=== PATIENT | female | born 1980 | race Caucasian/White ===

== ENCOUNTER 2018-08-22 03:04 | Inpatient (IN) | payer OTHER ==
[~2018-08-22] VITALS: Ht 162.6 cm; Wt 54.3 kg
[2018-08-22 04:21] VITALS: Ht 162.6 cm; Wt 54.3 kg
[2018-08-22] MEDS ORDERED: NACL 0.9% 3 ML SYG IV SCH (05:00)
[2018-08-22] MEDS ORDERED: ONDANSETRON 4 MG INJ IV PRN (05:00)
[2018-08-22] MEDS ORDERED: HYDROCODONE/APAP (5/325) TAB PO PRN (05:00)
[2018-08-22] MEDS ORDERED: BISACODYL (EC) 5 MG TAB PO PRN (05:00)
[2018-08-22] MEDS ORDERED: ACETAMINOPHEN 325 MG TAB PO PRN (05:00)
--- NOTE | 2018-08-22 05:02 | HP ---
Date/Time of Note Date/Time of Note DATE: 08/22/18 TIME: 04:57 Assessment/Plan VTE Prophylaxis SCD applied (from Nsg): Yes Pharmacological prophylaxis: NA/contraindicated Pharm contraindication: low risk/ambulating Lines/Catheters IV Catheter Type (from Nrsg): Saline Lock Assessment/Plan Hospital Course This is a 38-year-old female being admitted to the [facility] for: #1 intractable back pain: Secondary likely to lumbar radiculopathy/sciatica. Patient did have a CT scan at the transferring facility showed: Degenerative enthesopathy at L5-S1 including approximately 3 mm retrolisthesis of L5 vertebral body and S1. There is appearance of a large posterior central disc protrusion at L5-S1. At the current time we will obtain an MRI of the lumbar spine and the pelvis to further assess spine. Provide the patient with Toradol 30 mg IV every 6 hours as well as morphine 2 mg IV every 4 hours as this provided her relief at the transferring hospital. She reports that ibuprofen and baclofen and Arlington at home did not give her any relief. Consider muscle relaxant such as cyclobenzaprine given her left paravertebral spinal tenderness palpation, however I will be cautious with administrating this given the fact that she is currently on morphine as well. Neurosurgical consultation depending on MRI results. #2 urinary tract infection: Patient's urinalysis was positive for nitrites and leukoesterase, obtain urine culture results from the transfer facility if possible, nonetheless I will also order urinalysis and urine culture here as well. Ceftriaxone 1 g every 24 hours. #3 DVT GI prophylaxis: SCDs, no GI prophylaxis indicated Further treatment strategy will be implemented as per the clinical course. HPI/ROS Admit Date/Time Admit Date/Time Aug 22, 2018 at 03:45 Hx of Present Illness Chief complaint: Low back pain radiating to the left leg This is a 38-year-old female who was seen at [facility] with complaints of back pain that radiated to the left leg. Patient was subsequently transferred to [facility] secondary to insurance purposes. Patient apparently has a history of sciatica and had a flareup of her pain on 08/15. She was seen at [place] emergency department approximately 3 days ago and had similar complaints and was given Arlington and baclofen but this did not provide relief for her. She also took ibuprofen at home with no relief so she presented to [facility]. At [facility] she reported 10 out of 10 pain. She reported that she had been diagnosed with sciatica in April 2018 and she has had acupuncture that relieved her pain. She denies any trauma. Of note she was also diagnosed with a urinary tract infection at [facility] and was given a prescription for Bactrim but she has not been taking this. She reports that the pain is sharp and knifelike. Her pain is worse with movement and is relieved by lying down on her right side. She denies any urinary incontinence or bowel or bladder dysfunction. She denies any perineal numbness. Vitals at the transfer facility: Temperature 36.8 heart rate 66 BP 105/54 respirations 18 SPO2 98% on room air Pertinent laboratory findings: White blood cell 6.2/hemoglobin 12.3/hematocrit 35.7/platelets 299 BMP sodium 137 potassium 5.0 chloride 104 CO2 27 BUN 12 creatinine 0.75 glucose 107 urine negative. Urinalysis positive for leukoesterase and nitrites CT scan stone protocol: No renal stone or ureteral stone. Degenerative enthesopathy at L5-S1 including approximately 3 mm retrolisthesis of L5 vertebral body and S1. There is appearance of a large posterior central disc protrusion at L5-S1. X-ray of the lumbar spine: No evidence of compression retrograde alert retrolisthesis at of L5-S1. Reversal of the normal lordosis. ROS Const: As per HPI Eyes : No pain discharge or redness or change in visual acuity ENT: No pain, sore throat, congestion, congestion, dysphagia or discharge Respiratory: No shortness of breath, cough, sputum, wheezing, or pleuritic pain Cardiovascular: No chest pain, palpitation, PND, or edema GI : no change in appetite, abdominal pain, nausea, vomiting, diarrhea, constipation, or change in the color his stool Genitourinary: As per HPI Musculoskeletal: As per HPI Skin: No rash, bruising or hives Neuro: No headache, dizziness, syncope, seizure, focal weakness Endocrine: No polyuria, polydipsia, temperature intolerance Psych: No hallucination, depression, anxiety or suicidal ideation PMH/Family/Social Past Medical History Sciatica Medications Current Medications IV Flush (NS 3 ml) 3 ml PER PROTOCOL IV ; Start 08/22/18 at 05:00 Ondansetron HCl (Zofran Inj) 4 mg Q6H PRN IV NAUSEA AND/OR VOMITING; Start 08/22/18 at 05:00 Acetaminophen (Tylenol Tab) 650 mg Q6H PRN PO PAIN LEVEL 1-3 OR FEVER; Start 08/22/18 at 05:00 Acetaminophen/ Hydrocodone Bitart (Arlington (5/325)) 1 tab Q6H PRN PO MODERATE PAIN LEVEL 4-6; Start 08/22/18 at 05:00 Morphine Sulfate (morphine SULFATE (PF)) 2 mg Q4H PRN IV SEVERE PAIN LEVEL 7- 10; Start 08/22/18 at 05:00 Docusate Sodium (Colace) 100 mg Q12H PRN PO CONSTIPATION; Start 08/22/18 at 05:00 Bisacodyl (Dulcolax) 5 mg DAILY PRN PO CONSTIPATION; Start 08/22/18 at 05:00 Coded Allergies: No Known Allergy (Unverified , 08/22/18) Past Surgical History Bilateral breast implants Family History Significant Family History: no pertinent family hx Social History Alcohol Use: none Smoking Status: Never smoker Drug Use: none Exam/Review of Systems Exam Exam General: Patient is a pleasant female currently lying in bed in mild distress from pain HEENT: Atraumatic, normocephalic. The pupils are equal, round and reactive. Extraocular motor are intact Neck: Supple with full range of motion. No rigidity or meningismus Chest: Nontender Lungs: Clear to auscultation bilaterally no crackles rales or wheezing Heart: Normal S1-S2, Regular rhythm and rate. Abdomen: Soft , nontender, nondistended , bowel sounds are present. No guarding no rebound tenderness , No masses or organomegaly. No costovertebral temporal angle mass Extremities: Normal to inspection, no edema no cyanosis Musculoskeletal: Tenderness of the left paraspinal muscles at the level of the lumbar spine, tenderness palpation of the over the left buttocks, positive straight leg test of the left leg Neurologic: Normal mental status, speech normal, cranial nerves II through XII are intact, motor and sensory are intact, MARIAELENA CARVALHO Aug 22, 2018 05:02
[2018-08-22 05:12] VITALS: BP 99/53; PULSE 60; RESP 18
[2018-08-22] MEDS: morphine SULFATE/PF (2 MG/2 ML) SYG IV PRN ×3 (05:49→21:31)
[2018-08-22] MEDS: KETOROLAC 30 MG INJ IV PRN (05:50)
[2018-08-22] MEDS: CEFTRIAXONE 1 GM/50 ML (PMX) 50 ML IVPB SCH (05:50)
--- NOTE | 2018-08-22 06:23 | NUR ---
ADMISSION NOTES: Received a 38 y/o female form [facility] with chief complain of back pain radiating to left lower leg started last Monday. Ushered to assigned room. Vital signs was taken and recorded. Instructed on the usage of call,light and bed button. Admission assessment and photos was taken per protocol. Admitting doctor, Dr. Herring was informed of the admission and orders was noted and carried out. Started on IV antibiotic with no adverse reaction was noted. On Regular diet.All needs met and attended. will continue to monitor.
[2018-08-22 07:47] VITALS: BP 80/43; PULSE 78; RESP 14
[2018-08-22] MEDS: DOCUSATE SODIUM 100 MG CAP PO PRN (08:15)
--- NOTE | 2018-08-22 11:40 | NUR ---
PT order received, spoke to Dr Hernandez regarding order requesting patient to be seen today. Per chart review, previous CT indicates: Degenerative enthesopathy at L5-S1 including approximately 3 mm retrolisthesis of L5 vertebral body and S1, large posterior central disc protrusion at L5-S1. MRI of lumbar spine and pelvis have been ordered with possible neurosurgical consult based on imaging results. Spoke to patient, reports pain started with pain "with coughing" insidious onset last monday. Pain began to radiate on but patient continued to go [employer]. Severe pain monday in which patient went to [facility]. Patient reports pain is controlled in flexion posture but with any extension, patient reports severe pain with radiating symptoms. Currently BLE strength appear grossly intact limited by hesitation of movement and pain. Patient receptive to PT instruction, but due to patient reported severity of symptoms and concerns regarding integrity of spinal stability, will hold further PT evaluation pending results of lumbar and pelvic MRI. RN and patient aware and agreeable.
[2018-08-22] MEDS: BACLOFEN 10 MG TAB PO SCH ×3 (11:50→20:33)
--- NOTE | 2018-08-22 13:15 | PN ---
Date/Time of Note Date/Time of Note DATE: 08/22/18 TIME: 13:09 Assessment/Plan VTE Prophylaxis Risk score (from Ns)>0 risk: 2 SCD applied (from Ns): Yes Pharmacological prophylaxis: NA/contraindicated Pharm contraindication: low risk/ambulating Lines/Catheters IV Catheter Type (from Nrsg): Saline Lock Assessment/Plan Hospital Course 38F no major PMH presents with severe back pain likely from herniated disc #intractable back pain: - Secondary likely to lumbar radiculopathy/sciatica and herniated disc. - Patient did have a CT scan at the transferring facility showed: Degenerative enthesopathy at L5-S1 including approximately 3 mm retrolisthesis of L5 vertebral body and S1. There is appearance of a large posterior central disc protrusion at L5-S1. - At the current time we will obtain an MRI of the lumbar spine and the pelvis to further assess spine. - Pain control with toradol IV, morphine IV, and baclofen TID standing. - PT evaluation after MRI. # urinary tract infection: - Patient's urinalysis was positive for nitrites and leukoesterase - obtain urine culture results from the transfer facility if possible - Ceftriaxone 1 g every 24 hours. #3 DVT GI prophylaxis: SCDs, no GI prophylaxis indicated Assessment/Plan Result Diagram: 08/22/18 0502 08/22/18 0502 Results 24hrs Laboratory Tests Test 08/22/18 05:02 White Blood Count 5.8 Red Blood Count 3.39 L Hemoglobin 11.0 L Hematocrit 33.7 L Mean Corpuscular Volume 99.4 Mean Corpuscular Hemoglobin 32.4 Mean Corpuscular Hemoglobin Concent 32.6 Red Cell Distribution Width 11.6 Platelet Count 285 Mean Platelet Volume 10.1 Immature Granulocytes % 0.300 Neutrophils % 86.2 H Lymphocytes % 11.8 L Monocytes % 1.4 Eosinophils % 0.0 Basophils % 0.3 Nucleated Red Blood Cells % 0.0 Immature Granulocytes # 0.020 Neutrophils # 5.0 Lymphocytes # 0.7 L Monocytes # 0.1 L Eosinophils # 0.0 Basophils # 0.0 Nucleated Red Blood Cells # 0.0 Erythrocyte Sedimentation Rate 9 Sodium Level 140 Potassium Level 4.4 Chloride Level 103 Carbon Dioxide Level 26 Anion Gap 11 Blood Urea Nitrogen 14 Creatinine 0.60 Est Glomerular Filtrat Rate mL/min > 60 Glucose Level 138 Hemoglobin A1c 5.2 Calcium Level 9.1 Total Bilirubin 0.1 L Direct Bilirubin 0.00 Indirect Bilirubin 0.1 Aspartate Amino Transf (AST/SGOT) 26 Alanine Aminotransferase (ALT/SGPT) 39 Alkaline Phosphatase 66 Total Protein 6.6 Albumin 3.9 Globulin 2.70 Albumin/Globulin Ratio 1.44 Triglycerides Level 42 Cholesterol Level 153 LDL Cholesterol, Calculated 95 HDL Cholesterol 50 Cholesterol/HDL Ratio 3.0 Thyroid Stimulating Hormone (TSH) 0.772 Subjective 24 Hr Interval Summary Free Text/Dictation Required morphine and toradol this morning around 6 am. On my exam patient is able to stand but has difficulty straightening back. Reports pain has improved somewhat since yesterday. Exam/Review of Systems Vital Signs Vitals Vital Signs Date Temp Pulse Resp B/P (MAP) Pulse Ox O2 O2 Flow FiO2 Time Delivery Rate 08/22/18 98.3 78 14 80/43 (55) 99 07:47 08/22/18 Room Air 05:12 Intake and Output 08/21/18 08/21/18 08/22/18 1515:00 23:00 07:00 IntakeIntake Total 50 ml BalanceBalance 50 ml Exam Gen: Well appearing well groomed woman in no acute distress Eyes: PERRL, no icterus HEENT: Clear oropharynx moist mucous membranes Card: Regular rate and rhythm no murmurs Pulm: Clear to auscultation bilaterally Back: Nontender midline spine. Mild tenderness L paraspinal lumbar area. L straight leg raise elicits pain at about 45 degrees. R straight leg raise to about 65 degrees elicits L sided pain. Medications Medications Current Medications IV Flush (NS 3 ml) 3 ml PER PROTOCOL IV ; Start 08/22/18 at 05:00 Ondansetron HCl (Zofran Inj) 4 mg Q6H PRN IV NAUSEA AND/OR VOMITING; Start 08/22/18 at 05:00 Acetaminophen (Tylenol Tab) 650 mg Q6H PRN PO PAIN LEVEL 1-3 OR FEVER; Start 08/22/18 at 05:00 Morphine Sulfate (morphine SULFATE (PF)) 2 mg Q4H PRN IV SEVERE PAIN LEVEL 7-10 Last administered on 08/22/18at 05:49; Admin Dose 2 MG; Start 08/22/18 at 05:00 Docusate Sodium (Colace) 100 mg Q12H PRN PO CONSTIPATION Last administered on 08/22/18at 08:15; Admin Dose 100 MG; Start 08/22/18 at 05:00 Bisacodyl (Dulcolax) 5 mg DAILY PRN PO CONSTIPATION; Start 08/22/18 at 05:00 Ceftriaxone Sodium 50 ml @ 100 mls/hr Q24H IVPB Last administered on 08/22/18at 05:50; Admin Dose 100 MLS/HR; Start 08/22/18 at 05:30 Ketorolac Tromethamine (Toradol) 30 mg Q6H PRN IV PAIN LEVEL 1-3 Last administered on 08/22/18at 05:50; Admin Dose 30 MG; Start 08/22/18 at 05:30; Stop 08/24/18 at 05:29 Baclofen (Lioresal) 10 mg TID PO Last administered on 08/22/18at 11:50; Admin Dose 10 MG; Start 08/22/18 at 10:00 LISBETH ESPAÑA MD Aug 22, 2018 13:15
[2018-08-22 15:58] VITALS: BP 93/52; PULSE 58; RESP 16
--- NOTE | 2018-08-22 18:46 | NUR ---
No acute distress during the day. Patient had episode of severe pain, medicated as ordered with relieve of pain. MRI is scheduled for 22:00, patient is aware. Patient was able to walk to the bathroom with assistance. Patient remained safe during the day, bed alarm is on at all times, caii light within reach. Will continue to monitor.
[2018-08-22 20:00] VITALS: BP 89/51; PULSE 68; RESP 18
--- NOTE | 2018-08-22 21:33 | NUR ---
c/o sharp lower back pain, radiating to left leg, 10/10. patient was medicated with morphine 2mg IVP prn. Patient was taught re: side effects.
[2018-08-23] MEDS: morphine SULFATE/PF (2 MG/2 ML) SYG IV PRN ×3 (01:37→12:45)
[2018-08-23 02:00] VITALS: BP 113/53; PULSE 63; RESP 18
[2018-08-23] MEDS: KETOROLAC 30 MG INJ IV PRN ×2 (04:42→23:08)
[2018-08-23] MEDS: CEFTRIAXONE 1 GM/50 ML (PMX) 50 ML IVPB SCH (04:42)
--- NOTE | 2018-08-23 05:06 | NUR ---
EOSS: Patient remains stable. Had an MRI of the spine last night, awaiting results. Medicated with pain medicine intermittently. No other complaints at this time. Will endorse to morning nurse for continuity of care.
[2018-08-23 08:06] VITALS: BP 85/50; PULSE 51; RESP 16
[2018-08-23] MEDS: BACLOFEN 10 MG TAB PO SCH ×3 (08:07→20:21)
[2018-08-23 08:29] VITALS: BP 94/52
--- NOTE | 2018-08-23 09:30 | NUR ---
PT evaluation Therapy day number 1 Evaluation Start Time 09:30 Evaluation Total Time 0 min Subjective Current complaint of pain Pain Scale NUMERIC Pain Intensity 8 (0-10) Patient Stated Goal for Pain Relief 0 (0-10) Pain Level Comment with onset of backpain, 0/10 at rest Pre Treatment Vital Signs Stable Yes Transfer Training Start Time 10:30 Supine to Sit Supervised Transfer Sit to Stand Ability Supervised Bed Mobility Sit to Supine Supervised Bed Transfer Ability Supervised Chair Transfer Ability Supervised Additional Mobility Comments See note, performed log roll precaution Transfer Training End Time 11:00 Total Transfer Training Time 30 min (8-127) Gait Assist Levels Stand by Assist Assistive Devices None Ambulation Distance 5 feet Additional Gait Comments See note Static Sitting Balance Good Dynamic Sitting Balance Good Standing Static Balance Fair Dynamic Standing Balance Fair Safety Judgement Good Activity Tolerance Fair Equipment Present IV pump Post Treatment Pain Intensity 0 0-10 Additional Post Treatment Comment See note Total Treament Time 30 min (8-127) Total Minutes 90 Total Units 6 PT Technical Record Comment 38 yo female presents with lumbar radiculopathy/sciatica. Patient reports insidious onset starting 08/15/18 and previously seen at [facility]. CT indicated Degenerative enthesopathy at L5-S1 including approximately 3 mm retrolisthesis of L5 vertebral body and S1. There is appearance of a large posterior central disc protrusion at L5-S1. Subsequently pt transferred to [facility] for insurance purposes. Lumbar MRI indicates large central disc protrusion at L5-S1 with moderate severe mass effect on the thecal sac. Bulging annulus with posterior annular fissure noted at L4-L5 PMH includes sciatica and breast implants Precautions: fall risk, observed spinal precautions for comfort PLOF: Pt independent with mobility, no assistive device required. Patient lives in 2nd level home, has 2 children S: Patient in bed agreeable to PT evaluation. pt cleared for activity per RN. O: PT evaluation completed, pt returned back to bed following therapy intervention with call light within reach and bed alarm activated. Spoke to RN regarding pt response to activity and PT plan of care. Patient educated at length regarding ther-ex and spinal precautions. Demonstrated piriformis and hamstring stretch. Performed log roll out of bed to minimize aggravation of symptoms. Tenderness to palpation along L paraspinals L4-S1, with hypomobility of L3-L4 to PA glides. Patient unable to tolerate straight leg raise due to aggravation of symptoms and poor tolerance to pelvic tilt ther-ex. A: Patient presents with severe limitations secondary to pain. Patient presents with significant hamstring tightness which increased pelvic rotation with upright posture. Patient reports minimal pain while maintaining neutral pelvis but due to limitations of muscle length and core stability with change in position, pt presents with has poor ability to maintain posture. Thus patient able to ambulate with minimal pain with forward flexed posture with hands supported on knees with B knee flexion. When upright, due to increased pressure, patient unable to weight bear on LLE due to pain. Overall patient demonstrates adequate strength to perform mobility, however severely debilitated due to pain. Patient could continue to benefit from skilled inpatient PT to improve safe mobility and decreasing risk for secondary limitations associated with deconditioning. P; progress as tolerated Recommendation: Patient may benefit from use of FWW to aid in mobility and use of lumbosacral corset for increased stability. Patient may benefit from outpatient physical therapy when medically cleared from
--- NOTE | 2018-08-23 12:26 | PN ---
Date/Time of Note Date/Time of Note DATE: 08/23/18 TIME: 12:24 Assessment/Plan VTE Prophylaxis Risk score (from Nsg)>0 risk: 1 SCD applied (from Nsg): Yes Pharmacological prophylaxis: NA/contraindicated Pharm contraindication: low risk/ambulating Lines/Catheters IV Catheter Type (from Nrsg): Saline Lock Assessment/Plan Hospital Course 38F no major PMH presents with severe back pain likely from herniated disc #intractable back pain: - Secondary likely to lumbar radiculopathy/sciatica and herniated disc. - Patient did have a CT scan at the transferring facility showed: Degenerative enthesopathy at L5-S1 including approximately 3 mm retrolisthesis of L5 vertebral body and S1. There is appearance of a large posterior central disc protrusion at L5-S1. - MRI confirms compression of thecal sac. Dr. Alvarez was consulted; but this doesn't appear to represent a surgical emergency. - Pain control with toradol IV, morphine IV, and baclofen TID standing. - Continue PT. # urinary tract infection: - Patient's urinalysis was positive for nitrites and leukoesterase - urine culture here growing GNRs, will f/u sensitivities. - Ceftriaxone 1 g every 24 hours. #3 DVT GI prophylaxis: SCDs, no GI prophylaxis indicated Result Diagram: 08/22/18 0502 08/22/18 0502 Results 24hrs Laboratory Tests Test 08/23/18 07:34 Lab Scanned Report REFERENCE LAB Subjective 24 Hr Interval Summary Free Text/Dictation Able to ambulate to restroom with back bent. Cannot straighten out back yet. Still requiring morphine and toradol for pain. Worked with physical therapy today. Dysuria has resolved. Exam/Review of Systems Vital Signs Vitals Vital Signs Date Temp Pulse Resp B/P (MAP) Pulse Ox O2 O2 Flow FiO2 Time Delivery Rate 08/23/18 94/52 (66) 08:29 08/23/18 98.4 51 16 96 Room Air 08:06 Intake and Output 08/22/18 08/22/18 08/23/18 1515:00 23:00 07:00 IntakeIntake Total 960 ml 420 ml 50 ml BalanceBalance 960 ml 420 ml 50 ml Exam Gen: Well appearing well groomed woman in no acute distress Eyes: PERRL, no icterus HEENT: Clear oropharynx moist mucous membranes Card: Regular rate and rhythm no murmurs Pulm: Clear to auscultation bilaterally Back: Nontender midline spine. Mild tenderness L paraspinal lumbar area. L st raight leg raise elicits pain at about 55 degrees. R straight leg raise to about 65 degrees elicits L sided pain. Medications Medications Current Medications IV Flush (NS 3 ml) 3 ml PER PROTOCOL IV ; Start 08/22/18 at 05:00 Ondansetron HCl (Zofran Inj) 4 mg Q6H PRN IV NAUSEA AND/OR VOMITING; Start 08/22/18 at 05:00 Acetaminophen (Tylenol Tab) 650 mg Q6H PRN PO PAIN LEVEL 1-3 OR FEVER; Start 08/22/18 at 05:00 Morphine Sulfate (morphine SULFATE (PF)) 2 mg Q4H PRN IV SEVERE PAIN LEVEL 7-10 Last administered on 08/23/18 07:00; Admin Dose 2 MG; Start 08/22/18 at 05:00 Docusate Sodium (Colace) 100 mg Q12H PRN PO CONSTIPATION Last administered on 08/22/18at 08:15; Admin Dose 100 MG; Start 08/22/18 at 05:00 Bisacodyl (Dulcolax) 5 mg DAILY PRN PO CONSTIPATION; Start 08/22/18 at 05:00 Ceftriaxone Sodium 50 ml @ 100 mls/hr Q24H IVPB Last administered on 08/23/18 04:42; Admin Dose 100 MLS/HR; Start 08/22/18 at 05:30 Ketorolac Tromethamine (Toradol) 30 mg Q6H PRN IV PAIN LEVEL 1-3 Last administered on 08/23/18 04:42; Admin Dose 30 MG; Start 08/22/18 at 05:30; Stop 08/24/18 at 05:29 Baclofen (Lioresal) 10 mg TID PO Last administered on 08/23/18 08:07; Admin Dose 10 MG; Start 08/22/18 at 10:00 LISBETH ESPAÑA MD Aug 23, 2018 12:26
[2018-08-23] MEDS: DOCUSATE SODIUM 100 MG CAP PO PRN (12:45)
[2018-08-23 13:19] VITALS: BP 97/57; PULSE 55; RESP 16
--- NOTE | 2018-08-23 18:45 | NUR ---
END OF SHIFT NOTES: PT STABLE, ALERT & ORIENTED X4. NO DISTRESS NOTED. MORPHINE GIVEN X1, PT VERBALIZED RELIEF OF PAIN. PT EVAL DONE. NO SURGERY REQUIRED ACCDG TO DR. ESPAÑA. PT AMBULATED WITH A WALKER. GIVEN PRUNE JUICE AND LAXATIVES PRN FOR CONSTIPATION. INSTRUCTED PT TO CALL FOR ASSISTANCE. VS WNL.HOURLY ROUNDING. CALL LIGHT WITHIN REACH.ALL NEEDS MET. NO NEW COMPLAINTS.
[2018-08-23 20:00] VITALS: BP 112/55; PULSE 63; RESP 18
[2018-08-24 02:00] VITALS: BP 109/52; PULSE 60; RESP 18
[2018-08-24] MEDS: morphine SULFATE/PF (2 MG/2 ML) SYG IV PRN ×4 (03:25→22:12)
[2018-08-24] MEDS: CEFTRIAXONE 1 GM/50 ML (PMX) 50 ML IVPB SCH (04:45)
--- NOTE | 2018-08-24 06:01 | NUR ---
EOSS: No acute changes. Due meds given. Pt medicated for pain as requested. Pt. still has not had a BM. Will continue to monitor. All needs attended to. Pt. has a steady gait but uses a walker to help her back pain. Pt. free from injury. Will endorse care to oncoming nurse
[2018-08-24 07:50] VITALS: BP 93/44; PULSE 50; RESP 16
[2018-08-24] MEDS ORDERED: CIPROFLOXACIN 500 MG TAB PO SCH (09:00)
--- NOTE | 2018-08-24 09:18 | CONS ---
DATE OF ADMISSION: 08/22/2018 DATE OF CONSULTATION: 08/23/2018 REQUESTING PHYSICIAN: Dr. Tomy Carvalho INDICATION FOR CONSULTATION: Low back pain and radiculopathy. HISTORY OF PRESENT ILLNESS: The patient is a 38-year-old female with patient without significant past medical history who reports 8 days of acute low back pain, pain radiating down her left lower extremity. The patient states that in April she had 2 days of some mild radicular pain that resolved spontaneously. She denies any significant low back pain or radicular pain prior to this. She denies any weakness. She denies any bowel or bladder issues. She denies any saddle anesthesia. The patient previously had gone to [facility] and was treated with medications and sent home. She came back a few days later and went to [facility]. Again, treated with pain medications and was diagnosed with a radiculopathy The patient has not seen her primary physician regarding this issue. She has not had any nonoperative therapy except for some acupuncture. The patient reports that her pain radiates down her left lower extremity to the bottom of her foot. She denies any right lower extremity pain. She states she predominantly has constant back pain, but when she stands and puts weight on her left lower extremity they are elicited. She developed a severe 10/10 pain. Her low back pain ranges 5/10 to 10/10. PAST MEDICAL HISTORY: Sciatica. OUTPATIENT MEDICATIONS: 1. Ibuprofen p.r.n. 2. [place]. PAST SURGICAL HISTORY: Significant for bilateral breast implants approximately 8 years ago. FAMILY HISTORY: No significant past medical history. SOCIAL HISTORY: Nonsmoker, nondrinker. REVIEW OF SYSTEMS: A 12-point review of systems was performed. Pertinent positives and negatives listed in history of present illness below. CONSTITUTIONAL: Denies fevers or chills. HEMATOLOGIC: Denies any history of easy bruising or bleeding. PSYCHIATRIC: Denies depression or anxiety. PHYSICAL EXAMINATION: VITAL SIGNS: The patient's temperature is 98.6, pulse 51, respirations 16, blood pressure 85/50, saturating 96% on room air. GENERAL: The patient is well-developed, well-nourished female lying in the hospital bed in no acute distress. HEAD AND NECK: Normocephalic, atraumatic. Neck supple. No Spurling or Lhermitte sign. MUSCULOSKELETAL: The patient has no tenderness to palpation paraspinally or midline in her cervical or thoracic spine. She reports minimal lumbosacral tenderness. There is no bruising or discoloration in this area. There is no swelling or tenderness. She has no atrophy. Her motor exam 5/5 bilaterally upper and lower extremities and the lower extremities, her iliopsoas, quadriceps, anterior tibialis, extensor hallucis longus are all 5 out 5 though slightly limited secondary to pain. She has a positive straight leg raise test at 30 degrees on the left. Sensation is intact to light touch. NEUROLOGICAL: The patient awake, alert, and oriented x3, fluent speech, follows commands appropriately. Cranial nerves were serially tested and are intact. Sensation intact to light touch. Gait not assessed secondary to condition. Deep tendon reflexes were 2+ throughout with no clonus, Babinski, or Christine sign. REVIEW OF RADIOGRAPHIC RESULTS: I reviewed the patient's MRI of the lumbar spine performed this hospital today (impression: there is a large central disk protrusion at L5-S1 with moderate to severe mass effect on the thecal sac and contact exiting nerve roots). There is also bulging annulus and posterior annular fissure noted L4-5. There is mild mass or effect on the thecal sac present at this level. This was interpretation by the radiologist. There is a central disk herniation, slightly eccentric to the left that contacts and likely compressive the S1 nerve root. However, there is no severe central canal stenosis. There is no significant stenosis at L4-5, though there is annular tear. ASSESSMENT AND PLAN: A 38-year-old female with a lumbar radiculopathy and low back pain. I discussed patient's signs, symptoms, physical examination and radiographic findings with her. The patient has a lumbar radiculopathy and possible radiculitis secondary to a disk herniation at L5-S1. She also has annular tear at L4-5 which may contribute to low back pain; however, I believe this is likely asymptomatic. Given that there would not be parsimonious of both issues as L4-5 and L5-S1 became symptomatic concurrently. The patient denies any trauma. The patient has had minimal nonoperative therapy does not have any focal neurologic deficits. I discussed the natural history of radiculopathy and herniated disk. I advised the patient to continue with nonoperative therapy and surgery reserve for intractable pain that does not resolve despite nonoperative therapy. I recommend at least 6 weeks of nonoperative therapy prior to consideration of operative intervention unless the patient's pain is truly intractable and she is unable to function. I explained that I perform only surgical management. The patient is recommended to follow up with her primary physician as an outpatient for referral to nonoperative treatment options. Again, the patient does not have any focal neurologic deficit to require any acute neurosurgical intervention. The patient can follow up with a neurosurgeon as an outpatient and I advised to talk to her PMD. The patient has multiple admissions to the ER, but has not apparently contacted her PMD and referral through a physician in her network should be established immediately. I did discuss this with the comp field case manager. The patient states she did not want surgical intervention unless it is a last resort. Again, the patient can follow up as an outpatient for referral for further treatment. Dictated By: WASHINGTON ALLEN MD, LG/MANUEL Conf#: [id number] DID#: [id number] CC: TOMY CARVALHO MD;*EndCC* MTDD
[2018-08-24] MEDS: BACLOFEN 10 MG TAB PO SCH ×3 (09:21→20:46)
[2018-08-24] MEDS: CIPROFLOXACIN 500 MG TAB PO SCH (09:21)
--- NOTE | 2018-08-24 11:16 | NUR ---
PT NOTE Therapy day number 2 Subjective Denies pain Potential for pain Pain Scale FACES Pain Intensity 5 (0-10) Patient Stated Goal for Pain Relief 0 (0-10) Pain Level Comment denies pain at rest, premedicated, c/o RLE pain with mobility/WB Pre Treatment Vital Signs Stable Yes Exercise Assessment Label Bilat Lower Extremity Exercise Type Active ROM Additional Exercise Comments hooklying atlassian administrator pelvic tilts/abdominal bracing, alternating UE GH flex Exercise Start Time 11:16 Exercise End Time 11:31 Total Exercise Time 15 min (8-127) Transfer Training Start Time 11:31 Supine to Sit Supervised Transfer Sit to Stand Ability Supervised Bed Mobility Sit to Supine Supervised Sitting Tolerance 10 min Additional Mobility Comments bed mob tr via log rolling, seated BLE hamstring and piriformis stretch Transfer Training End Time 11:46 Total Transfer Training Time 15 min (8-127) Gait Training Start Time 11:46 Gait Assist Levels Stand by Assist Assistive Devices Front Wheel Walker Ambulation Distance 60 feet Additional Gait Comments very flex posture, decr pain w/ atlassian administrator pelvic tilt, NBOS, no LOB, reciproc Gait Training End Time 11:54 Total Gait Training Treatment Time 8 min (8-127) Static Sitting Balance Good Dynamic Sitting Balance Good Standing Static Balance Fair Dynamic Standing Balance Fair Additional Balance Assessments Comments FWW Safety Judgement Good Activity Tolerance Fair Equipment Present A pump Post Treatment Pain Intensity 3 0-10 Additional Post Treatment Comment See Below Total Treament Time 38 min (8-127) Total Minutes 38 Total Units 3 PT Technical Record Comment PT NOTE S: Pt reports no pain or dizziness pre-tx, agreeable to PT. Cleared for PT per RN Tempa. O: Pt received semifowler in bed, alert and appropriate, mother present in room, pt with LS corset in place. Performed thera ex, gait and transfer training per tech record above with FWW supervised to SBA. Pt c/o increased RLE pain with mobility and WB, able to perform abdominal bracing, posterior pelvic tilts and alternating UE GHJ flex in hook lying with abdominal bracing with minimal reproduction of symptoms. BTB and positioned for comfort posttx with call light and needs in reach, bed alarm armed, pt in no apparent acute distress, RN updated re pt status A: Pt joo tx fairly, Continues to be limited by pain, increased tolerance for gait with posterior pelvic tilt and LS corset in place. P: Cont POC
[2018-08-24] MEDS: NAPROXEN 500 MG TAB PO SCH ×2 (12:34→20:46)
--- NOTE | 2018-08-24 12:40 | NUR ---
NOTIFIED DR ESPAÑA OF PT'S COMPLAINT OF NUMBNESS/TINGLING IN HER LEFT LEG FROM HER KNEE DOWN THAT STARTED AFTER WORKING WITH PHYSICAL THERAPY. PT CAN STILL MOVE HER LEG AND WIGGLE HER TOES. SHE DENIES PAIN BUT PINS AND NEEDLE FEELING IS VERY UNCOMFORTABLE PER PT. MD STATES IS NORMAL PART OF HER DIAGNOSIS AND TO TRY NEW POSITIONS. Addendum: 08/24/18 at 1540 by MONIE BOOGIE RN PT STATES TINGLING IS BETTER. COMFORTABLE IN BED AT THIS TIME.
--- NOTE | 2018-08-24 15:01 | NUR ---
CM NOTE: OUTPATIENT PT Order for outpatient PT faxed to [facility] at [facility] (P:[phone], F:[phone]). Confirmation received. Carlo Zeng RN Cm [phone]
[2018-08-24 15:18] VITALS: BP 97/47; PULSE 64; RESP 18
--- NOTE | 2018-08-24 16:22 | PN ---
Date/Time of Note Date/Time of Note DATE: 08/24/18 TIME: 16:19 Assessment/Plan VTE Prophylaxis Risk score (from Nsg)>0 risk: 1 SCD applied (from Nsg): Yes SCD contraindicated: low risk/ambulating Pharmacological prophylaxis: NA/contraindicated Pharm contraindication: low risk/ambulating Lines/Catheters IV Catheter Type (from Nrsg): Peripheral IV Assessment/Plan Hospital Course 38F no major PMH presents with severe back pain likely from herniated disc #intractable back pain: - Secondary likely to lumbar radiculopathy/sciatica and herniated disc. - Patient did have a CT scan at the transferring facility showed: Degenerative enthesopathy at L5-S1 including approximately 3 mm retrolisthesis of L5 vertebral body and S1. There is appearance of a large posterior central disc protrusion at L5-S1. - MRI confirms compression of thecal sac. Dr. Alvarez was consulted, no urgent surgery needed. - Pain control with NSAIDs, opioids, muscle relaxants. PO with IV breakthrough. - Continue PT. # urinary tract infection: - Patient's urinalysis was positive for nitrites and leukoesterase - urine culture here E Coli sens to levofloxacin. - Ceftriaxone 1 g every 24 hours. # DVT GI prophylaxis: SCDs, no GI prophylaxis indicated Dispo: If functional on oral analgesics plan for discharge this weekend. Result Diagram: 08/22/18 0502 08/22/18 0502 Subjective 24 Hr Interval Summary Free Text/Dictation No acute overnight events. Tolerating physical therapy. Still unable to fully straighten back. Patient expressing desire to wean off IV analgesics. Will switch to oral opioids, NSAIDs, and muscle relaxants. Exam/Review of Systems Vital Signs Vitals Vital Signs Date Temp Pulse Resp B/P (MAP) Pulse Ox O2 O2 Flow FiO2 Time Delivery Rate 08/24/18 98.3 64 18 97/47 (64) 96 Room Air 15:18 Intake and Output 08/23/18 08/23/18 08/24/18 1515:00 23:00 07:00 IntakeIntake Total 840 ml 120 ml 290 ml BalanceBalance 840 ml 120 ml 290 ml Exam Gen: Well appearing well groomed woman in no acute distress Eyes: PERRL, no icterus HEENT: Clear oropharynx moist mucous membranes Card: Regular rate and rhythm no murmurs Pulm: Clear to auscultation bilaterally Back: Nontender midline spine. Mild tenderness L paraspinal lumbar area. L straight leg raise elicits pain at about 55 degrees. R straight leg raise to about 65 degrees elicits L sided pain. Medications Medications Current Medications IV Flush (NS 3 ml) 3 ml PER PROTOCOL IV ; Start 08/22/18 at 05:00 Ondansetron HCl (Zofran Inj) 4 mg Q6H PRN IV NAUSEA AND/OR VOMITING; Start 08/22/18 at 05:00 Acetaminophen (Tylenol Tab) 650 mg Q6H PRN PO PAIN LEVEL 1-3 OR FEVER; Start 08/22/18 at 05:00 Morphine Sulfate (morphine SULFATE (PF)) 2 mg Q4H PRN IV BREAKTHROUGH PAIN Last administered on 08/24/18 11:26; Admin Dose 2 MG; Start 08/22/18 at 05:00 Docusate Sodium (Colace) 100 mg Q12H PRN PO CONSTIPATION Last administered on 08/23/18 12:45; Admin Dose 100 MG; Start 08/22/18 at 05:00 Bisacodyl (Dulcolax) 5 mg DAILY PRN PO CONSTIPATION Last administered on 08/23/18 12:45; Admin Dose 5 MG; Start 08/22/18 at 05:00 Baclofen (Lioresal) 10 mg TID PO Last administered on 08/24/18 12:34; Admin Dose 10 MG; Start 08/22/18 at 10:00 Ciprofloxacin (Cipro) 500 mg DAILY@0600 PO Last administered on 08/24/18 09:21; Admin Dose 500 MG; Start 08/24/18 at 09:30 Naproxen (Naprosyn) 500 mg BID PO Last administered on 08/24/18 12:34; Admin Dose 500 MG; Start 08/24/18 at 11:30 Acetaminophen/ Hydrocodone Bitart ([place] (5/325)) 1 tab Q4H PRN PO BACK PAIN; Start 08/24/18 at 11:30 LISBETH ESPAÑA MD Aug 24, 2018 16:22
[2018-08-24 20:12] VITALS: BP 114/54; PULSE 64; RESP 18
--- NOTE | 2018-08-25 01:10 | NUR ---
numbness to leg patient complains of numbness to ble, able to wiggle toes and warm to touch. pedal pulse palpable. no calf pain noted. also complains of anxiety and inability to sleep. dr. mai notified. waiting for orders.
[2018-08-25] MEDS ORDERED: LORAZEPAM 4 MG/ML VIAL IV ONE (01:30)
[2018-08-25 01:48] VITALS: BP 106/53; PULSE 60; RESP 18
[2018-08-25] MEDS: CIPROFLOXACIN 500 MG TAB PO SCH (05:48)
--- NOTE | 2018-08-25 06:33 | NUR ---
c/o anxiety, Lorazepam 0.5 mg iv given. Pain controlled with Morphine IV. c/o numbness on BLE. Pedal pulse palpable. No changes in BLE strength.Will endorse to dayshift for continuity of care.
[2018-08-25 08:02] VITALS: BP 92/43; PULSE 53; RESP 16
[2018-08-25] MEDS: BACLOFEN 10 MG TAB PO SCH ×3 (09:00→21:56)
[2018-08-25] MEDS: NAPROXEN 500 MG TAB PO SCH ×3 (09:00→21:56)
--- NOTE | 2018-08-25 13:59 | PN ---
Date/Time of Note Date/Time of Note DATE: 08/25/18 TIME: 13:58 Assessment/Plan VTE Prophylaxis Risk score (from Nsg)>0 risk: 1 SCD applied (from Ns): Yes Pharmacological prophylaxis: NA/contraindicated Pharm contraindication: low risk/ambulating Lines/Catheters IV Catheter Type (from Nrsg): Sal[place] Lock Assessment/Plan Hospital Course 38F no major PMH presents with severe back pain likely from herniated disc #intractable back pain: - Secondary likely to lumbar radiculopathy/sciatica and herniated disc. - Patient did have a CT scan at the transferring facility showed: Degenerative enthesopathy at L5-S1 including approximately 3 mm retrolisthesis of L5 vertebral body and S1. There is appearance of a large posterior central disc protrusion at L5-S1. - MRI confirms compression of thecal sac. Dr. Alvarez was consulted, no urgent surgery needed. - Pain control with NSAIDs, opioids, muscle relaxants. PO with IV breakthrough. - Continue PT. # urinary tract infection: - Patient's urinalysis was positive for nitrites and leukoesterase - urine culture here E Coli - Cont levofloxacin # DVT GI prophylaxis: SCDs, no GI prophylaxis indicated Dispo: If functional on oral analgesics plan for discharge this weekend. Result Diagram: 08/22/18 0502 08/22/18 0502 Subjective 24 Hr Interval Summary Free Text/Dictation Required morphine once overnight and also Ativan IV for anxiety. Nothing this morning except PO baclofen and naproxen. Hasn't tried walking with PT yet; but was able to get out of bed and almost stood up straight. Still needs to lean forward when walking. Exam/Review of Systems Vital Signs Vitals Vital Signs Date Temp Pulse Resp B/P (MAP) Pulse Ox O2 O2 Flow FiO2 Time Delivery Rate 08/25/18 98.4 53 16 92/43 (59) 96 08:02 08/24/18 Room Air 15:18 Intake and Output 08/24/18 08/24/18 08/25/18 1515:00 23:00 07:00 IntakeIntake Total 480 ml 600 ml 240 ml BalanceBalance 480 ml 600 ml 240 ml Exam Gen: Well appearing well groomed woman in no acute distress Eyes: PERRL, no icterus HEENT: Clear oropharynx moist mucous membranes Card: Regular rate and rhythm no murmurs Pulm: Clear to auscultation bilaterally Back: Nontender midline spine. Mild tenderness L paraspinal lumbar area. Medications Medications Current Medications IV Flush (NS 3 ml) 3 ml PER PROTOCOL IV ; Start 08/22/18 at 05:00 Ondansetron HCl (Zofran Inj) 4 mg Q6H PRN IV NAUSEA AND/OR VOMITING; Start 08/22/18 at 05:00 Acetaminophen (Tylenol Tab) 650 mg Q6H PRN PO PAIN LEVEL 1-3 OR FEVER; Start 08/22/18 at 05:00 Morphine Sulfate (morphine SULFATE (PF)) 2 mg Q4H PRN IV BREAKTHROUGH PAIN Last administered on 08/24/18at 22:12; Admin Dose 2 MG; Start 08/22/18 at 05:00 Docusate Sodium (Colace) 100 mg Q12H PRN PO CONSTIPATION Last administered on 08/23/18at 12:45; Admin Dose 100 MG; Start 08/22/18 at 05:00 Bisacodyl (Dulcolax) 5 mg DAILY PRN PO CONSTIPATION Last administered on 08/23/18at 12:45; Admin Dose 5 MG; Start 08/22/18 at 05:00 Baclofen (Lioresal) 10 mg TID PO Last administered on 08/25/18at 12:56; Admin Dose 10 MG; Start 08/22/18 at 10:00 Ciprofloxacin (Cipro) 500 mg DAILY@0600 PO Last administered on 08/25/18at 05:48; Admin Dose 500 MG; Start 08/24/18 at 09:30 Naproxen (Naprosyn) 500 mg BID PO Last administered on 08/25/18at 12:56; Admin Dose 500 MG; Start 08/24/18 at 11:30 Acetaminophen/ Hydrocodone Bitart ([place] (5/325)) 1 tab Q4H PRN PO BACK PAIN; Start 08/24/18 at 11:30 LISBETH ESPAÑA MD Aug 25, 2018 13:59
[2018-08-25] MEDS ORDERED: LORAZEPAM 1 MG TAB PO PRN (14:00)
[2018-08-25 16:00] VITALS: BP 95/46; PULSE 58; RESP 16
[2018-08-25] MEDS: HYDROCODONE/APAP (5/325) TAB PO PRN (16:06)
[2018-08-25] MEDS: morphine SULFATE/PF (2 MG/2 ML) SYG IV PRN ×2 (16:44→21:56)
--- NOTE | 2018-08-25 18:42 | NUR ---
EOSS: PT STABLE THROUGHOUT SHIFT. PT AMBULATED THROUGHOUT UNIT X1. SHOWERED. LINEN CHANGED. PT MEDICATED FOR PAIN WITH ONE DOSE OF NORCO AND ONE DOSE OF MORPHINE ORDERED. ALL DUE MEDS GIVEN, HOURLY ROUNDING COMPLETED. WILL ENDORSE CARE OF PT TO ONCOMING BARREL ENDSHAKER ADJUSTER RN.
[2018-08-25 20:00] VITALS: BP 106/57; PULSE 63; RESP 16
[2018-08-26 02:32] VITALS: BP 92/50; PULSE 72; RESP 16
--- NOTE | 2018-08-26 05:53 | NUR ---
ASLEEP RESTING COMFORTABLY IN BED. NO ACUTE CHANGES OVERNIGHT. ALL DUE MEDS GIVEN AND TOLERATED WELL. PAIN MEDICATION ADMINISTERED NEEDED AND EFFECTIVE. PT ABLE TO AMBULATE WITH WALKER TO BATHROOM. HOURLY ROUNDING DONE. ALL NEEDS ATTENDED. CALL LIGHT WITHIN EASY REACH. WILL ENDORSE TO NEXT SHIFT.
[2018-08-26] MEDS: CIPROFLOXACIN 500 MG TAB PO SCH (06:08)
[2018-08-26 08:07] VITALS: BP 87/49; PULSE 79; RESP 16
[2018-08-26] MEDS: NAPROXEN 500 MG TAB PO SCH (08:10)
[2018-08-26] MEDS: HYDROCODONE/APAP (5/325) TAB PO PRN ×2 (08:11→13:30)
[2018-08-26] MEDS: BACLOFEN 10 MG TAB PO SCH ×2 (08:11→13:30)
--- NOTE | 2018-08-26 12:01 | PDOCDIS ---
Discharge Instructions DIAGNOSIS Discharge Diagnosis Acute sciatica Retrolisthesis of L5-S1 Disc herniation of L5-S1 CONDITION [id number] Patient Condition: [id number] Fair HOME CARE INSTRUCTIONS: Digoo3Kc Diet Instructions: [id number] Regular ACTIVITY: [id number] Activity Restrictions: Zanks1y Slowly Increase Activity Dujqu4Uz Activity Restrictions Nblmg3e No lifting more than 10 lbs. Comment: No vigorous exercise. FOLLOW UP/APPOINTMENTS Follow-up Plan 1. Take all medication as prescribed. 2. In addition to the medication prescribed, [id number] ibuprofen or naproxen may offer some relief. 3. Do not take any alcohol while on [place] or baclofen. 4. Make an appointment with your primary care doctor within one week. 5. For worsening pain not controlled by rest and pain medications, return to [facility] ED. LISBETH ESPAÑA MD Aug 26, 2018 12:01
[2018-08-26] MEDS ORDERED: HYDR-2457 PO (12:03)
[2018-08-26] MEDS ORDERED: SENN-36 PO (12:03)
[2018-08-26] MEDS ORDERED: BACL20TA PO (12:03)
--- NOTE | 2018-08-26 13:30 | NUR ---
08/26/18 FWW delivered to the pt. and papers faxed to [facility].
[2018-08-26 14:00] VITALS: BP 98/50; PULSE 71; RESP 16
--- NOTE | 2018-08-26 16:21 | NUR ---
Patient discharged in stable condition .V.S within normal limits .No s/s of any acute distress. Discharge paperwork, prescriptions and follow up information reviewed and signed by patient .Patient verbalized understanding .Walker provided before discharge. Patient discharged via wheelchair with all her belongings accompanying by her family .
--- NOTE | 2018-08-26 17:14 | DS ---
Date/Time of Note Date/Time of Note DATE: 08/26/18 TIME: 17:09 Discharge Summary Admission/Discharge Info Admit Date/Time Aug 22, 2018 at 03:45 Discharge Date/Time Aug 26, 2018 at 16:15 Discharge Diagnosis Acute sciatica Retrolisthesis of L5-S1 Disc herniation of L5-S1 Patient Condition: Fair Consults Neurosurgery Procedures None Hx of Present Illness Chief complaint: Low back pain radiating to the left leg This is a 38-year-old female who was seen at [facility] with complaints of back pain that radiated to the left leg. Patient was subsequently transferred to [facility] secondary to insurance purposes. Patient apparently has a history of sciatica and had a flareup of her pain on 08/15. She was seen at [place] emergency department approximately 3 days ago and had similar complaints and was given [place] and baclofen but this did not provide relief for her. She also took ibuprofen at home with no relief so she presented to [facility]. At [facility] she reported 10 out of 10 pain. She reported that she had been diagnosed with sciatica in April 2018 and she has had acupuncture that relieved her pain. She denies any trauma. Of note she was also diagnosed with a urinary tract infection at [facility] and was given a prescription for Bactrim but she has not been taking this. She reports that the pain is sharp and knifelike. Her pain is worse with movement and is relieved by lying down on her right side. She denies any urinary incontinence or bowel or bladder dysfunction. She denies any perineal numbness. Vitals at the transfer facility: Temperature 36.8 heart rate 66 BP 105/54 respirations 18 SPO2 98% on room air Pertinent laboratory findings: White blood cell 6.2/hemoglobin 12.3/hematocrit 35.7/platelets 299 BMP sodium 137 potassium 5.0 chloride 104 CO2 27 BUN 12 creatinine 0.75 glucose 107 urine negative. Urinalysis positive for leukoesterase and nitrites CT scan stone protocol: No renal stone or ureteral stone. Degenerative enthesopathy at L5-S1 including approximately 3 mm retrolisthesis of L5 vertebral body and S1. There is appearance of a large posterior central disc protrusion at L5-S1. X-ray of the lumbar spine: No evidence of compression retrograde alert retrolisthesis at of L5-S1. Reversal of the normal lordosis. Hospital Course MRI was done showing 3 mm retrolisthesis of L5 vertebral body and large L5-S1 disc herniation with compression of thecal sac. Dr. Alvarez was consulted, but urgent surgery not needed. She was started on IV opioids, IV NSAIDs, and PO muscle relaxants. Slowly over the next few days and with daily PT the pain gradually improved and patient grew more functional. She will be discharged on norco and baclofen. She was also found to have a UTI with urine cultures growing E Coli. In addition to ABx at OSH she got seven days total of ceftriaxone then levofloxacin here. At time of discharge she had no dysuria. Urine culture also grew out gardnerella vaginalis, but she had no symptoms of vaginitis so was not treated with metronidazole. Home Meds Active Scripts Sennosides* (Senokot*) 8.6 Mg Tablet, 2 TAB PO BID, #60 TAB Prov:LISBETH ESPAÑA MD 08/26/18 Hydrocodone Bit-Acetaminophen (Hydrocodone Bit-Acetaminophen) 10-300 Mg Tablet, 1 TAB PO Q6H PRN for PAIN, #21 TAB Prov:LISBETH ESPAÑA MD 08/26/18 Baclofen* (Baclofen*) 20 Mg Tablet, 20 MG PO TID, #30 TAB Prov:LISBETH ESPAÑA MD 08/26/18 Follow-up Plan 1. Take all medication as prescribed. 2. In addition to the medication prescribed, [id number] ibuprofen or naproxen may offer some relief. 3. Do not take any alcohol while on [place] or baclofen. 4. Make an appointment with your primary care doctor within one week. 5. For worsening pain not controlled by rest and pain medications, return to [facility] ED. Primary Care Provider Care Physician No Primary Time spent on discharge: > 30 minutes LISBETH ESPAÑA MD Aug 26, 2018 17:14
== END 2018-08-26 16:15 | disposition home or self-care (01) | DRG 552 ==
LOC: 2NE 03:45
PROVIDERS: ADMIT Family Medicine; ATTEND Internal Medicine
DX: M51.17 Intervertebral disc disorders with radiculopathy, lumbosacral region (principal); N39.0 Urinary tract infection, site not specified; M43.17 Spondylolisthesis, lumbosacral region; B96.20 Unspecified Escherichia coli [E. coli] as the cause of diseases classified elsewhere
CPT/HCPCS: 72148; 72195; 80053; 80061; 83036; 84443; 85025; 85651; 87086; 97110; 97116; 97162; 97530; J0696; J1885; J2060; J2274

== ENCOUNTER 2018-08-30 21:37 | Observation (INO) | payer OTHER ==
[~2018-08-30] VITALS: Ht 162.6 cm; Wt 52.6 kg
[~2018-08-30 21:37] MED LIST: BACL20TA PO; HYDR-2457 PO; SENN-36 PO
[2018-08-30 22:06] VITALS: Ht 162.6 cm; Wt 52.6 kg
[2018-08-31] MEDS ORDERED: morphine 4 MG/ML VIAL IV STA (00:30)
[2018-08-31] MEDS ORDERED: ONDANSETRON 4 MG INJ IV STA ×2 (00:30→04:32)
[2018-08-31] MEDS ORDERED: POLYETHYLENE GLYCOL 17 GM PACKET PO ONE (02:30)
[2018-08-31] MEDS ORDERED: HYDROmorphONE 2 MG/ML SYG IV STA (02:50)
[2018-08-31] MEDS ORDERED: ACETAMINOPHEN 325 MG TAB PO PRN ×2 (04:30→06:00)
[2018-08-31] MEDS ORDERED: ONDANSETRON 4 MG INJ IV PRN ×2 (04:30→06:00)
[2018-08-31] MEDS ORDERED: IBUP-1542 PO (05:21)
--- NOTE | 2018-08-31 05:21 | ERD ---
ER Documentation Chief Complaint Chief Complaint lower back pain radiating to left leg. hx of sciatica HPI 8-year-old female patient with a past medical history of large central disc protrusion at L5-S1 with moderate severe mass effect on the thecal sac and contact of the descending nerve roots and bulging annulus with a posterior annular fissure is noted at L4-L5 presents to the ED complaining of worsening numbness and tingling of the left leg now is experiencing numbness and tingling of her left arm patient reports that she tried taking [place], baclofen without any relief, was discharged here in the ED on August 26, 2018. Patient admitted for 4 days. Patient reports that she is walking with a hump in with a cane. Denies any dysuria, urgency, frequency, hematuria, abdominal pain, chest pain, shortness of breath, fever, chills, saddle anesthesia, urine or bowel incontinence. ROS All systems reviewed and are negative except as per history of present illness. Medications Home Meds Active Scripts Sennosides* (Senokot*) 8.6 Mg Tablet, 2 TAB PO BID, #60 TAB Prov:LISBETH ESPAÑA MD 08/26/18 Hydrocodone Bit-Acetaminophen (Hydrocodone Bit-Acetaminophen) 10-300 Mg Tablet, 1 TAB PO Q6H PRN for PAIN, #21 TAB Prov:LISBETH ESPAÑA MD 08/26/18 Baclofen* (Baclofen*) 20 Mg Tablet, 20 MG PO TID, #30 TAB Prov:LISBETH ESPAÑA MD 08/26/18 Allergies Allergies: Coded Allergies: No Known Allergy (Unverified , 08/30/18) PMhx/Soc History of Surgery: Yes (breast implant) Anesthesia Reaction: No Hx Neurological Disorder: Yes (sciatica) Hx Respiratory Disorders: No Hx Cardiac Disorders: No Hx Psychiatric Problems: No Hx Miscellaneous Medical Probl: Yes (sciatica, breast implants) Hx Alcohol Use: Yes (socially) Hx Substance Use: No Hx Tobacco Use: No Smoking Status: Never smoker FmHx Family History: No diabetes, No coronary disease Physical Exam Vitals Vital Signs Date Temp Pulse Resp B/P (MAP) Pulse Ox O2 O2 Flow FiO2 Time Delivery Rate 08/30/18 99.1 73 18 98/84 (89) 97 22:06 Physical Exam Const: [id number], well-nourished. In no acute distress. Head: Atraumatic, normocephalic Eyes: Normal Conjunctiva without injection. No purulent discharge. ENT: Normal external ear, nose. Moist oropharynx without tonsillar exudates. Non-erythematous pharynx. Uvula midline. No drooling. No trismus. Neck: No cervical midline tenderness. Full range of motion. No meningismus. No cervical lymphadenopathy. No JVD. Resp: Clear to auscultation bilaterally. No wheezing, rhonchi, rales, or crackles. No accessory muscle use. No retractions. Cardio: Regular rate and rhythm. No murmurs, rubs or gallops. Abd: Soft, nontender, non distended. Normal bowel sounds. No palpable masses. No rebound tenderness. No guarding. Negative McBurney's point. Negative psoas sign. Negative obturator sign. Skin: No petechiae or rashes Back: L4-5 midline tenderness. No CVA tenderness. Ext: No cyanosis, or edema. Neur: Awake and alert. Normal gait. Normal coordination. Psych: Normal Mood and Affect Results 24 hrs Laboratory Tests Test 08/31/18 00:44 08/31/18 00:46 Urine Color YELLOW Urine Clarity SLIGHTLY CLOUDY Urine pH 5.0 Urine Specific [place] 1.011 Urine Ketones NEGATIVE mg/dL Urine Nitrite NEGATIVE mg/dL Urine Bilirubin NEGATIVE mg/dL Urine Urobilinogen NEGATIVE mg/dL Urine Leukocyte Esterase NEGATIVE Twila/ul Urine Microscopic RBC 1 /HPF Urine Microscopic WBC 4 /HPF Urine Squamous Epithelial Cells FEW /HPF Urine Bacteria FEW /HPF Urine Hemoglobin 2+ mg/dL Urine Glucose NEGATIVE mg/dL Urine Total Protein NEGATIVE mg/dl POC Beta HCG, Qualitative NEGATIVE Current Medications Medications Dose Sig/Darin Start Time Status Last (Trade) Ordered Route PRN Stop Time Admin Dose Reason Admin Morphine 4 mg ONCE STAT 08/31/18 DC 08/31/18 Sulfate IV 00:30 08/31/18 00:51 (morphine) 00:32 Ondansetron 4 mg ONCE STAT 08/31/18 DC 08/31/18 HCl (Zofran IV 00:30 08/31/18 00:51 Inj) 00:32 17 gm ONCE ONCE 08/31/18 DC 08/31/18 Polyethylene PO 02:30 08/31/18 02:26 Glycol 02:31 (Miralax) 1 mg ONCE STAT 08/31/18 DC 08/31/18 Hydromorphone IV 02:50 08/31/18 02:55 HCl 02:51 (Dilaudid) Ondansetron 4 mg BRIDGE ORDER 08/31/18 HCl (Zofran PRN IV 04:30 09/01/18 Inj) NAUSEA AND/OR 04:29 VOMITING 650 mg ER BRIDGE 08/31/18 Acetaminophen PRN PO MILD 04:30 09/01/18 (Tylenol PAIN(1-3)OR 04:29 Tab) ELEVATED TEMP Ondansetron 4 mg ONCE STAT 08/31/18 DC HCl (Zofran IV 04:32 08/31/18 Inj) 04:33 Procedures/MDM 38-year-old female patient presents the ED complaining of worsening back and leg pain. Patient is afebrile and nontoxic-appearing. Patient appears to have intractable back pain and was admitted for management. Patient's MRI was shown to have large central disc protrusion at L5-S1 with moderate severe mass effect on the thecal sac and contact of the descending nerve roots. Orthopedic surgical management recommended conservative therapy however if patient was unable to tolerate pain, surgery will be reconsidered. Discussed with my supervising physician with Dr. Adhikari who agreed to admit patient at this time. Patient was given formal grams IV morphine, total of 8 mg IV Zofran, 1 mg Dilaudid without any relief of her symptoms. Departure Diagnosis: Primary Impression: Intractable back pain Condition: PEDRO Kapoor PA-C Aug 31, 2018 05:21
[2018-08-31] MEDS ORDERED: NACL 0.9% 3 ML SYG IV SCH (06:00)
[2018-08-31] MEDS ORDERED: ALBUTEROL/IPRATROPIUM (NEB) 3 ML AMP HHN PRN (06:00)
[2018-08-31] MEDS ORDERED: HYDROmorphONE 0.5 MG/0.5 ML SYG IV PRN (06:00)
[2018-08-31] MEDS ORDERED: HYDROCODONE/APAP (5/325) TAB PO PRN ×2 (06:00)
[2018-08-31 06:12] VITALS: BP 105/60; PULSE 67; RESP 18
--- NOTE | 2018-08-31 07:31 | HP ---
Date/Time of Note Date/Time of Note DATE: 08/31/18 TIME: 07:26 Assessment/Plan VTE Prophylaxis Pharmacological prophylaxis: heparin Assessment/Plan Assessment/Plan 38-year-old female worsening lumbar radiculopathy and low back pain. PLAN -Patient was recently admitted with MRI showing MRI shows Large central disc protrusion at L5-S1 with moderate severe mass effect on the thecal sac and contact of the descending nerve roots and bulging annulus with a posterior annular fissure is noted at L4-L5 as well as mild mass effect on the thecal sac is present at this level. -Currently she is not endorsing bowel or bladder incontinence -Will reconsult neurosurgery -Pain management -Bowel regimen -Patient benefits from back brace Results 24hrs Laboratory Tests Test 08/31/18 00:44 08/31/18 00:46 Urine Color YELLOW Urine Clarity SLIGHTLY CLOUDY A Urine pH 5.0 Urine Specific [place] 1.011 Urine Ketones NEGATIVE Urine Nitrite NEGATIVE Urine Bilirubin NEGATIVE Urine Urobilinogen NEGATIVE Urine Leukocyte Esterase NEGATIVE Urine Microscopic RBC 1 Urine Microscopic WBC 4 Urine Squamous Epithelial Cells FEW Urine Bacteria FEW A Urine Hemoglobin 2+ H Urine Glucose NEGATIVE Urine Total Protein NEGATIVE POC Beta HCG, Qualitative NEGATIVE HPI/ROS Admit Date/Time Admit Date/Time Aug 31, 2018 at 04:28 Hx of Present Illness Patient is a 38-year-old female with low back pain with radiation to the lower extremity which started in April of last year. She was admitted here recently and in fact was just discharged a few days ago. At that time MRI shows Large central disc protrusion at L5-S1 with moderate severe mass effect on the thecal sac and contact of the descending nerve roots and bulging annulus with a posterior annular fissure is noted at L4-L5 as well as mild mass effect on the thecal sac is present at this level. She was evaluated by neurosurgery who recommended 6 weeks of nonoperative management. Patient's pain somehow worsens than previous. She also states that the pain now radiates all the way down to her left ankle area. She denied any new onset bowel or bladder incontinence. Last bowel movement 2 days ago. She said she was given a walker at the time of discharge. She wears of those abdominal binder, but no back brace PMH/Family/Social Past Medical History Medications Current Medications Ondansetron HCl (Zofran Inj) 4 mg BRIDGE ORDER PRN IV NAUSEA AND/OR VOMITING; Start 08/31/18 at 04:30; Stop 09/01/18 at 04:29 Acetaminophen (Tylenol Tab) 650 mg ER BRIDGE PRN PO MILD PAIN(1-3)OR ELEVATED TEMP; Start 08/31/18 at 04:30; Stop 09/01/18 at 04:29 IV Flush (NS 3 ml) 3 ml PER PROTOCOL IV ; Start 08/31/18 at 06:00 Ondansetron HCl (Zofran Inj) 4 mg Q6H PRN IV NAUSEA AND/OR VOMITING; Start 08/31/18 at 06:00 Acetaminophen (Tylenol Tab) 650 mg Q6H PRN PO PAIN LEVEL 1-3 OR FEVER; Start 08/31/18 at 06:00 Acetaminophen/ Hydrocodone Bitart ([place] (5/325)) 1 tab Q6H PRN PO MODERATE PAIN LEVEL 4-6; Start 08/31/18 at 06:00 Acetaminophen/ Hydrocodone Bitart ([place] (5/325)) 2 tab Q6H PRN PO SEVERE PAIN LEVEL 7-10; Start 08/31/18 at 06:00 Hydromorphone HCl (Dilaudid) 1 mg Q4H PRN IV SEVERE PAIN LEVEL 7-10; Start 08/31/18 at 06:00 Heparin Sodium (Porcine) (Heparin (5000 Units/1ml)) 5,000 unit Q12 SC ; Start 08/31/18 at 09:00 Albuterol/ Ipratropium (Duoneb) 3 ml Q2H RESP THERAPY PRN HHN SHORTNESS OF BREATH; Start 08/31/18 at 06:00 Coded Allergies: No Known Allergy (Unverified , 08/31/18) Family History Significant Family History: no pertinent family hx Social History Smoking Status: Never smoker Exam/Review of Systems Vital Signs Vitals Vital Signs Date Temp Pulse Resp B/P (MAP) Pulse Ox O2 O2 Flow FiO2 Time Delivery Rate 08/31/18 98.3 67 18 105/60 100 06:12 (75) 08/31/18 Room Air 05:32 Exam Constitutional: alert, oriented, well developed Head: normocephalic, atraumatic Eyes: EOMI, PERRL Respiratory: clear to auscultation, normal air movement Cardiovascular: regular rate and rhythm, nl pulses Gastrointestinal: soft, non-tender Extremities: normal pulses ESTEPHANIE SANTANA MD Aug 31, 2018 07:31
[2018-08-31 07:35] VITALS: BP 115/58; PULSE 58; RESP 20
[2018-08-31] MEDS ORDERED: MAGNESIUM HYDROXIDE 30ML CUP PO STA (08:49)
--- NOTE | 2018-08-31 09:00 | NUR ---
ADVISED PATIENT TO CALL FOR ASSISTANCE WHEN GETTING OOB AND USE OF ASSISTIVE DEVICE.
[2018-08-31] MEDS: HEPARIN 5,000 UNIT/1 ML VIAL SC SCH ×2 (10:04→21:00)
--- NOTE | 2018-08-31 10:11 | NUR ---
MEDICATED WITH BACLOFEN DUE TO C/O BACK SPASM AND MUSCLE TIGHTNESS
[2018-08-31] MEDS ORDERED: BACLOFEN 10 MG TAB PO ONE (10:30)
--- NOTE | 2018-08-31 12:19 | NUR ---
PT SEEN BY DR PAGE
--- NOTE | 2018-08-31 12:54 | PN ---
Date/Time of Note Date/Time of Note DATE: 08/31/18 TIME: 12:46 Assessment/Plan VTE Prophylaxis Risk score (from Nsg)>0 risk: 1 SCD applied (from Nsg): Yes Pharmacological prophylaxis: LMWH Pharm contraindication: low risk/ambulating Lines/Catheters IV Catheter Type (from Nrsg): Saline Lock Assessment/Plan Hospital Course Assessment plan 1. Herniated lumbosacral disc, mod stable. 6 wks conservative management unless neurological exam changes or if functional status declines. stable continue supportive care 2. Nonadherence? 3. Recent UTI question Subjective: Moderate pain. Did not tolerate morphine narcotic/Dilaudid. No fever no incontinence. The pain does radiate down her left leg. Denies any injury. She was at the gym a few days prior to the pain. Objective: Vital signs stab IMPRESSION: Large central disc protrusion at L5-S1 with moderate severe mass effect on the thecal sac and contact of the descending nerve roots. Bulging annulus with a posterior annular fissure is noted at L4-L5. Mild mass effect on the thecal sac is present at this level. Admit-r Pal, Physician Physical exam No pallor Regular Clear Benign No edema Reflexes symmetrical: Babinski, neutral more on lt? SLR: rt>15; about 15. Results 24hrs Laboratory Tests Test 08/31/18 00:44 08/31/18 00:46 Urine Color YELLOW Urine Clarity SLIGHTLY CLOUDY A Urine pH 5.0 Urine Specific [place] 1.011 Urine Ketones NEGATIVE Urine Nitrite NEGATIVE Urine Bilirubin NEGATIVE Urine Urobilinogen NEGATIVE Urine Leukocyte Esterase NEGATIVE Urine Microscopic RBC 1 Urine Microscopic WBC 4 Urine Squamous Epithelial Cells FEW Urine Bacteria FEW A Urine Hemoglobin 2+ H Urine Glucose NEGATIVE Urine Total Protein NEGATIVE POC Beta HCG, Qualitative NEGATIVE Exam/Review of Systems Vital Signs Vitals Vital Signs Date Temp Pulse Resp B/P (MAP) Pulse Ox O2 O2 Flow FiO2 Time Delivery Rate 08/31/18 98.1 58 20 115/58 99 07:35 (77) 08/31/18 Room Air 05:32 Medications Medications Current Medications IV Flush (NS 3 ml) 3 ml PER PROTOCOL IV ; Start 08/31/18 at 06:00 Ondansetron HCl (Zofran Inj) 4 mg Q6H PRN IV NAUSEA AND/OR VOMITING; Start 08/31/18 at 06:00 Acetaminophen (Tylenol Tab) 650 mg Q6H PRN PO PAIN LEVEL 1-3 OR FEVER; Start 08/31/18 at 06:00 Acetaminophen/ Hydrocodone Bitart ([place] (5/325)) 1 tab Q6H PRN PO MODERATE PAIN LEVEL 4-6; Start 08/31/18 at 06:00 Acetaminophen/ Hydrocodone Bitart ([place] (5/325)) 2 tab Q6H PRN PO SEVERE PAIN LEVEL 7-10; Start 08/31/18 at 06:00 Hydromorphone HCl (Dilaudid) 1 mg Q4H PRN IV SEVERE PAIN LEVEL 7-10; Start at 06:00 Heparin Sodium (Porcine) (Heparin (5000 Units/1ml)) 5,000 unit Q12 SC Last administered on 08/31/18at 10:04; Admin Dose 5,000 UNIT; Start 08/31/18 at 09:00 Albuterol/ Ipratropium (Duoneb) 3 ml Q2H RESP THERAPY PRN HHN SHORTNESS OF BREATH; Start 08/31/18 at 06:00 PATRICIA BELLE MD Aug 31, 2018 12:54
[2018-08-31] MEDS ORDERED: BISACODYL (EC) 5 MG TAB PO PRN (13:00)
[2018-08-31] MEDS ORDERED: BISACODYL 10 MG SUPP PR PRN (13:00)
[2018-08-31] MEDS: BACLOFEN 10 MG TAB PO SCH (13:30)
[2018-08-31] MEDS: IBUPROFEN 800 MG TAB PO PRN ×2 (13:33→18:20)
[2018-08-31 14:02] VITALS: BP 115/55; PULSE 63; RESP 18
--- NOTE | 2018-08-31 16:20 | NUR ---
EOSS: AA,ORIENTED X4.PATIENT MAIN CONCERN IS MUSCLE SPASM AND TIGHTNESS WITH BURNING PAIN.STARTED TODAY WITH BACLOFEN AND MOTRIN FOR PAIN.NOTIFIED PT ABT PT CARIDAD ORDERED AND WILL DO EVALUATION IN AM.PATIENT IS ABLE TO AMBULATE WITH RADIATING PAIN ON LEFT LEG.HAD ALSO C/O CONSTIPATION AND WAS STARTED ON MILK OF MAGNESIA AND ADVISED HIGH FIBER DIET AND ADEQUATE PO FLUIDS.PT TO CONT WITH TREATMENT PLAN.
[2018-08-31 20:44] VITALS: BP 105/55; PULSE 67; RESP 20
[2018-08-31] MEDS: SENNA/DOCUSATE NA (8.6MG/50MG) TAB PO SCH (21:56)
[2018-09-01] MEDS: BACLOFEN 10 MG TAB PO SCH ×2 (03:29→20:13)
[2018-09-01] MEDS: IBUPROFEN 800 MG TAB PO PRN ×3 (04:39→21:29)
--- NOTE | 2018-09-01 06:50 | NUR ---
EOSS PATIENT SLEPT SOME AT START OF SHIFT. MEDICATED FOR PAIN WITH MOTRIN X 1 AND WAS EFFECTIVE. NO C/O NAUSEA. VOIDING WELL. REPOSITIONS SELF WELL, AND PILLOWS IN PLACE FOR ADDED COMFORT. C/O ANXIETY THIS AM. AWAITING ORDERS FROM HOSPITALIST. CALL LIGHT IN REACH.
[2018-09-01 07:40] VITALS: BP 100/50; PULSE 63; RESP 17
--- NOTE | 2018-09-01 08:30 | NUR ---
PT EVALUATION/DISCHARGE: Therapy day number 1 Evaluation Start Time 08:30 Evaluation End Time 09:25 Evaluation Total Time 55 min Subjective Current complaint of pain Pain Scale NUMERIC Pain Intensity 5 (0-10) Patient Stated Goal for Pain Relief 0 (0-10) Pain Level Comment back pain Pre Treatment Vital Signs Stable Yes Exercise Assessment Label Bilat Lower Extremity Exercise Type Active ROM Additional Exercise Comments HEP training AROM BLEs hips, knees, ankles in supine (pain-free range) Supine to Sit Modified Independent Transfer Sit to Stand Ability Modified Independent Bed Mobility Sit to Supine Modified Independent Bed Transfer Ability Modified Independent Chair Transfer Ability Modified Independent Toileting Ability Modified Independent Additional Mobility Comments logroll for bed mobility, Mod I w/FWW for transfers Gait Assist Levels Modified Independent Assistive Devices Front Wheel Walker Ambulation Distance 300 feet Additional Gait Comments step to -> partial step through gait sequencing, slow pace however no LOB Stair Climbing Ability Independent Number of Stairs 4 Stairs Additional Stairs Assist Comments 2x4 steps Mod I with BUEs on L handrail Static Sitting Balance Good Dynamic Sitting Balance Good Standing Static Balance Fair plus Dynamic Standing Balance Fair plus Safety Judgement Good Activity Tolerance Fair Post Treatment Pain Intensity 4 0-10 Total Minutes 55 Total Units 4 PT Technical Record Comment PT Evaluation: Pt is a 38yo female admitted to [facility] under observation after presenting to ER with acute back pain radiating to LLE, denies B&B disturbance. Pt has PMH significant for recent admission for back pain in 07/2018. MRI (+) Large central disc protrusion at L5-S1 with moderate severe mass effect on the thecal sac and contact of the descending nerve roots. Bulging annulus with a posterior annular fissure is noted at L4-L5. Per neurology consult, conservative management advised at this time. Pt seen for PT evaluation on 4W med-surg unit. PLOF: Pt lives in 2nd floor apartment with 15STE L rail. Pt previously I without AD for community mobility, has been using FWW since DC from [facility] in 07/2018 for back pain management. CLOF: Pt cleared to work with per CHRIS Ortega. Pt agreeable to evaluation and reports subjective symptoms improvement compared to last few days. Pt demos impaired SLR LLE>RLE, however BUE and BLE strength assessed to be >=4/5. Pt reeeducated on spinal precautions and logrolling to maintain neutral spine posture during functional mobility, verbalized good understanding. Pt assessed to be Mod I for bed mobility, Mod I with FWW for STS and toilet transfers, Mod I for ambulating 300ft with FWW in hallway, Mod I for negotiating [id number] with L handrail. Pt demos antalgic gait, utilizing partial step through gait sequencing and semi-flexed posture for pain managment, however pt demos good balance and safety awareness throughout evaluation. Pt presented to PT evaluation with good balance and safety awareness despite back pain today and demos good understanding of education provided today by therapist, thus additional skilled PT interventions not advised at this time. Pt encouraged to continue to perform supine therex HEP and ambulating in hallway with FWW and nursing supervision while admitted, verablized understanding. Pt endorsed to RN post-treatment and all needs met. Pt may benefit from follow up with outpatient PT treatment post-DC from [facility] to back stabilization program to prevent reinjury.
[2018-09-01] MEDS: HEPARIN 5,000 UNIT/1 ML VIAL SC SCH (08:49)
[2018-09-01 14:15] VITALS: BP 97/50; PULSE 78; RESP 17
--- NOTE | 2018-09-01 15:52 | PN ---
Date/Time of Note Date/Time of Note DATE: 09/01/18 TIME: 15:49 Assessment/Plan VTE Prophylaxis Risk score (from Nsg)>0 risk: 0 SCD applied (from Nsg): Yes SCD contraindicated: low risk/ambulating Pharmacological prophylaxis: LMWH Lines/Catheters IV Catheter Type (from Nrsg): Saline Lock Assessment/Plan Hospital Course Assessment plan 1. Herniated lumbosacral disc, mod stable cont PT. 6wks conservative mngmnt unless neurological exam changes or if functional status declines. 2. Nonadherence? 3. Recent UTI? S: 08/31 mod pain. Didnt tolerate ms/Dilaudid. No fever no incontinence. The pain does radiate down her left leg. Denies any injury. at the gym a few days prior to the pain. 09/01 anticipate with PT. No incontinence O: Vss IMPRESSION: Large central disc protrusion at L5-S1 with moderate severe mass effect on the thecal sac and contact of the descending nerve roots. Bulging annulus with a posterior annular fissure is noted at L4-L5. Mild mass effect on the thecal sac is present at this level. Physical exam No pallor Regular Clear Benign No edema Reflexes symmetrical: Babinski, neutral more on lt? SLR: rt>15; about 15. Result Diagram: 09/01/18 0431 09/01/18 0431 Results 24hrs Laboratory Tests Test 09/01/18 04:31 White Blood Count 6.0 Red Blood Count 3.30 L Hemoglobin 11.0 L Hematocrit 32.0 L Mean Corpuscular Volume 97.0 Mean Corpuscular Hemoglobin 33.3 H Mean Corpuscular Hemoglobin Concent 34.4 Red Cell Distribution Width 11.7 Platelet Count 274 Mean Platelet Volume 10.2 Immature Granulocytes % 0.200 Neutrophils % 51.9 Lymphocytes % 36.2 Monocytes % 9.2 Eosinophils % 2.2 Basophils % 0.3 Nucleated Red Blood Cells % 0.0 Immature Granulocytes # 0.010 Neutrophils # 3.1 Lymphocytes # 2.2 Monocytes # 0.6 Eosinophils # 0.1 Basophils # 0.0 Nucleated Red Blood Cells # 0.0 Sodium Level 139 Potassium Level 3.8 Chloride Level 101 Carbon Dioxide Level 30 Anion Gap 8 Blood Urea Nitrogen 13 Creatinine 0.63 Est Glomerular Filtrat Rate mL/min > 60 Glucose Level 106 Calcium Level 9.1 Phosphorus Level 3.3 Magnesium Level 1.9 Total Bilirubin 0.4 Direct Bilirubin 0.00 Indirect Bilirubin 0.4 Aspartate Amino Transf (AST/SGOT) 22 Alanine Aminotransferase (ALT/SGPT) 26 Alkaline Phosphatase 49 Total Protein 6.5 Albumin 3.5 Globulin 3.00 Albumin/Globulin Ratio 1.16 Exam/Review of Systems Vital Signs Vitals Vital Signs Date Temp Pulse Resp B/P (MAP) Pulse Ox O2 O2 Flow FiO2 Time Delivery Rate 09/01/18 98.3 78 17 97/50 (66) 98 14:15 08/31/18 Room Air 05:32 Intake and Output 08/31/18 08/31/18 09/01/18 1515:00 23:00 07:00 IntakeIntake Total 240 ml 200 ml 350 ml BalanceBalance 240 ml 200 ml 350 ml Medications Medications Current Medications IV Flush (NS 3 ml) 3 ml PER PROTOCOL IV ; Start 08/31/18 at 06:00 Ondansetron HCl (Zofran Inj) 4 mg Q6H PRN IV NAUSEA AND/OR VOMITING; Start 08/31/18 at 06:00 Acetaminophen (Tylenol Tab) 650 mg Q6H PRN PO PAIN LEVEL 1-3 OR FEVER; Start 08/31/18 at 06:00 Acetaminophen/ Hydrocodone Bitart ([place] (5/325)) 1 tab Q6H PRN PO MODERATE PAIN LEVEL 4-6; Start 08/31/18 at 06:00 Hydromorphone HCl (Dilaudid) 1 mg Q4H PRN IV SEVERE PAIN LEVEL 7-10; Start 08/31/18 at 06:00 Heparin Sodium (Porcine) (Heparin (5000 Units/1ml)) 5,000 unit Q12 SC Last administered on 08/31/18at 10:04; Admin Dose 5,000 UNIT; Start 08/31/18 at 09:00 Albuterol/ Ipratropium (Duoneb) 3 ml Q2H RESP THERAPY PRN HHN SHORTNESS OF BREATH; Start 08/31/18 at 06:00 Senna/Docusate Sodium (Senokot-S) 2 tab HS PO Last administered on 08/31/18at 21:56; Admin Dose 2 TAB; Start 08/31/18 at 21:00 Ibuprofen (Motrin) 800 mg Q6H PRN PO MILD PAIN LEVEL 1-3 Last administered on 09/01/18 14:11; Admin Dose 800 MG; Start 08/31/18 at 13:00 Bisacodyl (Dulcolax) 10 mg DAILY PRN PO CONSTIPATION Last administered on 09/01/18 08:49; Admin Dose 10 MG; Start 08/31/18 at 13:00 Bisacodyl (Dulcolax Supp) 10 mg Q48H PRN [place] CONSTIPATION Last administered on 09/01/18 11:06; Admin Dose 10 MG; Start 08/31/18 at 13:00 Baclofen (Lioresal) 10 mg AM PO Last administered on 09/01/18 03:29; Admin Dose 10 MG; Start 08/31/18 at 13:30 PATRICIA BELLE MD Sep 01, 2018 15:52
[2018-09-01] MEDS ORDERED: LORAZEPAM 1 MG TAB PO PRN (18:30)
--- NOTE | 2018-09-01 19:29 | NUR ---
End of shift: patient was constipated and prn med administered. Pt had BM. Ambulated with walker with contact guard assist,
[2018-09-01 20:10] VITALS: BP 99/51; PULSE 74; RESP 20
[2018-09-01] MEDS: SENNA/DOCUSATE NA (8.6MG/50MG) TAB PO SCH (20:14)
[2018-09-02] MEDS: IBUPROFEN 800 MG TAB PO PRN ×3 (03:22→17:03)
--- NOTE | 2018-09-02 06:47 | NUR ---
END OF SHIFT SUMMARY:AOX4. Given motrin prn lower back and left leg. Pt had BM yesterday. Safety precautions taken, call light in reach, low bed position.
[2018-09-02 07:09] VITALS: BP 97/48; PULSE 69; RESP 14
[2018-09-02] MEDS ORDERED: ENOXAPARIN 40 MG/0.4 ML SYG SC SCH (09:00)
[2018-09-02] MEDS: BACLOFEN 10 MG TAB PO SCH (09:01)
--- NOTE | 2018-09-02 11:00 | NUR ---
PATIENT COMFORTABLE, VITALS STABLE . ALL MEALS TAKEN. PAIN MANAGEMENT CONTINUED. IV SITE INTACT AND PATENT. ALL SAFETY PRECAUTIONS MAINTAINED SUCH BED IN THE LOWEST POSITION, ALARMS ON, BRAKES ON, CALL LIGJT WITHIN REACH. WILL CONTINUE TO MONITOR.
[2018-09-02 14:29] VITALS: BP 100/58; PULSE 77; RESP 15
--- NOTE | 2018-09-02 14:46 | NUR ---
Case Mngt: Left a message for Dr. Guerra to change admit status to inpatient, patient's bedside nurse also informed, awaiting for MD's order.
--- NOTE | 2018-09-02 15:23 | PDOCDIS ---
Discharge Instructions CONDITION [id number] Patient Condition: [id number] Stable HOME CARE INSTRUCTIONS: [id number] Diet Instructions: [id number] Regular [id number] Special Diet: [id number] regular diet ACTIVITY: [id number] Activity Restrictions: [id number] Slowly Increase Activity Rest between Activity Avoid heavy lifting Do not Drive Do not operate Machinery Do not operate Power Tool Avoid Heavy Housework [id number] Bathing Restrictions: [id number] Shower FOLLOW UP/APPOINTMENTS Follow-up Plan appt primary 1wk Dr Alvarez 2wks PATRICIA BELLE MD Sep 02, 2018 15:23
[2018-09-02] MEDS ORDERED: IBUP800T48 PO (15:24)
[2018-09-02] MEDS ORDERED: ACET325T33 PO (15:24)
[2018-09-02] MEDS ORDERED: SENN1TAB19 PO (15:24)
--- NOTE | 2018-09-02 15:31 | DS ---
Date/Time of Note Date/Time of Note DATE: 09/02/18 TIME: 15:28 Discharge Summary Admission/Discharge Info Admit Date/Time Aug 31, 2018 at 04:28 Discharge Date/Time Patient Condition: Stable Hx of Present Illness 38-year-old female with recent acute back strain sciatica readmitted for back pain Hospital Course Hospital course readmitted with back pain. Required assistance with PT for ambulation. Presently she is able to take care of some of her ADLs such as getting to the bathroom and back. She is stable for for discharge pain is improved. No incontinence fever etc. She feels better somewhat but obviously still uncomfortable. We will arrange for home health safety and asked patient to follow-up with neurosurgeon a couple weeks. She was instructed to avoid heavy lifting and no new exercise program. She is to rest in between therapy sessions. Also aware that if there is poor progress over the next few weeks that she may need surgery. 1. Herniated lumbosacral disc, stable cont PT. 6wks conservative mngmnt unless neurological exam changes or if functional status declines. 2. Nonadherence? 3. Recent UTI? . Constipation S: 1/ mod pain. Didnt tolerate ms/Dilaudid. No fever no incontinence. The pain does radiate down her left leg. Denies any injury. at the gym a few days prior to the pain. 09/01 anticipate with PT. No incontinence 6: No events O: Vss IMPRESSION: Large central disc protrusion at L5-S1 with moderate severe mass effect on the thecal sac and contact of the descending nerve roots. Bulging annulus with a posterior annular fissure is noted at L4-L5. Mild mass effect on the thecal sac is present at this level. Physical exam No pallor Regular Clear Benign No edema Reflexes symmetrical: Babinski, neutral more on lt? SLR: rt>15; about 15. Home Meds Active Scripts Sennosides/Docusate Sodium (Dok Plus Tablet) 1 Each Tablet, 2 TAB PO HS for 10 Days, #10 TAB 3 Refills Prov:PATRICIA BELLE MD 09/02/18 Ibuprofen* (Motrin*) 800 Mg Tab, 800 MG PO Q6H PRN for MILD PAIN LEVEL 1-3 for 1 Day, TAB Prov:PATRICIA BELLE MD 09/02/18 Acetaminophen* (Tylenol*) 325 Mg Tablet, 650 MG PO Q6H PRN for PAIN LEVEL 1-3 OR FEVER for 1 Day, TAB Prov:PATRICIA BELLE MD 09/02/18 Sennosides* (Senokot*) 8.6 Mg Tablet, 2 TAB PO BID, #60 TAB Prov:LISBETH ESPAÑA MD 08/26/18 Hydrocodone Bit-Acetaminophen (Hydrocodone Bit-Acetaminophen) 10-300 Mg Tablet, 1 TAB PO Q6H PRN for PAIN, #21 TAB Prov:LISBETH ESPAÑA MD 08/26/18 Baclofen* (Baclofen*) 20 Mg Tablet, 20 MG PO TID, #30 TAB Prov:LISBETH ESPAÑA MD 08/26/18 Discontinued Reported Medications Ibuprofen* (Ibuprofen*) 600 Mg Tablet, 600 MG PO Q6H PRN for PAIN LEVEL 6-10, TAB 08/31/18 Follow-up Plan appt primary 1wk Dr Alvarez 2wks Primary Care Provider Care Physician No Primary PATRICIA BELLE MD Sep 02, 2018 15:30
--- NOTE | 2018-09-02 15:38 | NUR ---
Case Mngt: Received order from MD to arrange for home health PT, request for change of status to inpatient not addressed yet by MD. Spoke with patient and informed her that our record still shows self pay which makes it challenging to arrange home health services, MD also informed thru phone messaging. Patient insisted she has medical, emailed [facility] to follow up on her insurance.
--- NOTE | 2018-09-02 16:25 | NUR ---
END OF THE SHIFT NOTE: PATIENT COMFORTABLE . VITALS STABLE. DIET TOLERATED. PATIENT CONTINUED WITH PAIN MANAGEMENT. ERECEIVED DISCHARGE ORDER FROM DR. BELLE AND PATIENT INFORMED, CASEMANAGER FOLLOWED UP. IV REMOVED . CATHETER TIP INTACT . PATIENT GIVEN WITH DISCHARGE INSTRUCTIONS AND AND DISCHARGE SAFELY AT THIS TIME, BY WHEEL CHAIR ACCOMPANIED BY THREAD LASTER.
== END 2018-09-02 18:30 | disposition home health service (06) ==
LOC: FTE 21:37 → INTOOBSV 08-31 04:28 → MS1 08-31 04:28 → CANRESERV 08-31 05:30
PROVIDERS: ADMIT Internal Medicine; ATTEND Internal Medicine
DX: M51.26 Other intervertebral disc displacement, lumbar region (principal); N39.0 Urinary tract infection, site not specified; K59.00 Constipation, unspecified
CPT/HCPCS: 80053; 81001; 81025; 83735; 84100; 85025; 87081; 97162; G0378; J1170; J1644; J1650; J2270; J2405